=== PATIENT | male | born 1980 | race African-American/Black ===

== ENCOUNTER 2018-01-07 11:25 | Emergency (ER) | payer SELFPAY ==
[2018-01-07 13:52] LABS: RPR Titer ND
[2018-01-07] MEDS ORDERED: CEFTRIAXONE/SWI 1gm 1 GM/10 ML SYR ONE (14:00)
[2018-01-07] MEDS ORDERED: NA CHLORIDE 0.9% 500 ML ONE (14:00)
[2018-01-07] MEDS ORDERED: AZITHROMYCIN 250 MG TAB ONE (14:00)
[2018-01-07 14:01] LABS: Absolute Lymphocytes (CBC) 2.9 K/uL (0.7-4.9); Absolute Neutrophil 5.3 K/uL (1.8-8.0); Basophils % 0.5 % (0-1.3); Eosinophils % 8.8 % (0-4.4); Hematocrit 44.6 % (39.6-49.0); Lymphocytes % 29.1 % (15.3-44.8); MCH 28.7 pg (27.0-35.0); MCV 84.9 fL (80-100); MPV 7.6 fL (7.6-11.3); Monocytes % 9.5 % (3.3-12.3); RBC Red Blood Cell Count 5.25 M/uL (4.33-5.43)
[2018-01-07] MEDS ORDERED: ONDANSETRON 4 MG/2 ML VIAL ONE (14:14)
[2018-01-07] MEDS ORDERED: MUPIROCIN 2% OINT 22GM TUBE TOP ONE (14:15)
[2018-01-07 14:20] LABS: Albumin 3.5 g/dL (3.4-5.0); Bilirubin Total 0.5 mg/dL (0.2-1.0); Potassium 3.5 mmol/L (3.5-5.1); Protein, Total 7.4 g/dL (6.4-8.2)
[2018-01-07 14:42] LABS: Urine Bacteria <20 /HPF (NONE SEEN); Urine Culture Reflex Order REFLEXED; Urine RBC <5 /HPF (NONE SEEN)
[2018-01-07 14:43] LABS: Urine Blood NEGATIVE (NEG); Urine Glucose NEGATIVE (NEG); Urine Protein NEGATIVE (NEG)
--- NOTE | 2018-01-07 14:52 | EDPHYS ---
Physician Documentation [facility] Name: Saturnino Mackey Age: 37 yrs Sex: Male : 1980 Arrival Date: 01/07/2018 Time: 11:30 Bed 6 Private MD: Bryce Terrell ED Physician Joshua Dawn HPI: 01/07 13:28 This 37 yrs old Black Male presents to ER via Ambulatory with complaints of Yeast xena Infection. 13:28 The patient presents with unknown, pt states yeast. Onset: The symptoms/episode xena began/occurred 3 week(s) ago. Modifying factors: The symptoms are alleviated by nothing, remaining still. Associated signs and symptoms: The patient has no apparent associated signs or symptoms. Severity of symptoms: At their worst the symptoms were mild, in the emergency department the symptoms are unchanged. The patient has not experienced similar symptoms in the past. Historical: - Allergies: : No Known Allergies; ch - Home Meds: :44 None [Active]; ch - PMHx: :44 Hypertension; ch - PSHx: :44 None; ch - Immunization history:: Adult Immunizations up to date, Last tetanus immunization: not indicated for visit today. < 5 years ago Flu vaccine is not up to date. - Social history:: Smoking status: Patient uses tobacco products, smokes one pack cigarettes per day. Patient uses alcohol, but reports only rare drinking. 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 - Ebola Screening: : Patient negative for fever greater than or equal to 101.5 degrees Fahrenheit, and additional compatible Ebola Virus Disease symptoms Patient denies exposure to infectious person Patient denies travel to an Ebola-affected area in the 21 days before illness onset No symptoms or risks identified at this time. - Family history:: not pertinent. ROS: 13:28 Constitutional: Negative for fever, chills, and weight loss, Eyes: Negative for injury, xena pain, redness, and discharge, ENT: Negative for injury, pain, and discharge, Neck: Negative for injury, pain, and swelling, Cardiovascular: Negative for chest pain, palpitations, and edema, Respiratory: Negative for shortness of breath, cough, wheezing, and pleuritic chest pain, Abdomen/GI: Negative for abdominal pain, nausea, vomiting, diarrhea, and constipation, Back: Negative for injury and pain, MS/Extremity: Negative for injury and deformity, Skin: Negative for injury, rash, and discoloration, Neuro: Negative for headache, weakness, numbness, tingling, and seizure. 13:28 : Positive for penile pain, of the head of penis. Exam: 13:28 Constitutional: This is a well developed, well nourished patient who is awake, alert, xena and in no acute distress. Head/Face: Normocephalic, atraumatic. Eyes: Pupils equal round and reactive to light, extra-ocular motions intact. Lids and lashes normal. Conjunctiva and sclera are non-icteric and not injected. Cornea within normal limits. Periorbital areas with no swelling, redness, or edema. ENT: Nares patent. No nasal discharge, no septal abnormalities noted. Tympanic membranes are normal and external auditory canals are clear. Oropharynx with no redness, swelling, or masses, exudates, or evidence of obstruction, uvula midline. Mucous membranes moist. Neck: Trachea midline, no thyromegaly or masses palpated, and no cervical lymphadenopathy. Supple, full range of motion without nuchal rigidity, or vertebral point tenderness. No Meningismus. Chest/axilla: Normal chest wall appearance and motion. Nontender with no deformity. No lesions are appreciated. Cardiovascular: Regular rate and rhythm with a normal S1 and S2. No gallops, murmurs, or rubs. Normal PMI, no JVD. No pulse deficits. Respiratory: Lungs have equal breath sounds bilaterally, clear to auscultation and percussion. No rales, rhonchi or wheezes noted. No increased work of breathing, no retractions or nasal flaring. Abdomen/GI: Soft, non-tender, with normal bowel sounds. No distension or tympany. No guarding or rebound. No evidence of tenderness throughout. Back: No spinal tenderness. No costovertebral tenderness. Full range of motion. Skin: Warm, dry with normal turgor. Normal color with no rashes, no lesions, and no evidence of cellulitis. MS/ Extremity: Pulses equal, no cyanosis. Neurovascular intact. Full, normal range of motion. Neuro: Awake and alert, GCS 15, oriented to person, place, time, and situation. Cranial nerves II-XII grossly intact. Motor strength 5/5 in all extremities. Sensory grossly intact. Cerebellar exam normal. Normal gait. Psych: Awake, alert, with orientation to person, place and time. Behavior, mood, and affect are within normal limits. 13:28 : Male external genitalia: erythema, lesion, tenderness, of the head of penis is noted. Vital Signs: 11:44 BP 154 / 105; Pulse 98; Resp 16; Temp 99.6; Pulse Ox 99% on R/A; Weight 104.33 kg; ch Height 5 ft. 11 in. (180.34 cm); Pain 4/10; 14:32 BP 163 / 115; Pulse 85; Resp 16; Pulse Ox 100% on R/A; ag 14:33 BP 155 / 114; Pulse 73; Resp 18; Pulse Ox 99% on R/A; sv 15:00 BP 168 / 120; Pulse 74; Resp 18; Pulse Ox 99% ; sv 11:44 Body Mass Index 32.08 (104.33 kg, 180.34 cm) ch 15:00 Dr Dawn aware of vitals. sv MDM: 12:50 Patient medically screened. [facility] 13:32 Data reviewed: vital signs, nurses notes, lab test result(s). [facility] 01/07 13:05 Order name: Urine Microscopic Only; Complete Time: 14:45 dm5 01/07 13:09 Order name: Urine Dipstick--Ancillary (enter results); Complete Time: 14:45 bd 01/07 13:26 Order name: CBC with Diff; Complete Time: 14:10 [facility] 01/07 13:26 Order name: Comprehensive Metabolic Panel; Complete Time: 14:45 [facility] 01/07 13:26 Order name: Rpr [facility] 01/07 14:43 Order name: Urine Culture EDMS Administered Medications: 14:02 CANCELLED (Duplicate Order): Rocephin - (cefTRIAXone) 1 grams IVPB once over 30 mins; sv (mix in 50 mL NS) 14:05 Drug: NS 0.9% 500 ml Route: IV; Rate: bolus; Site: right antecubital; sv 14:30 Follow up: Response: No adverse reaction; IV Status: Completed infusion; IV Intake: sv 500ml 14:05 Drug: Rocephin 1 grams Route: IV; Rate: calculated rate; Site: right antecubital; sv 14:10 Follow up: Response: No adverse reaction; IV Status: Completed infusion; IV Intake: 10mlsv 14:16 Drug: Zofran 4 mg Route: IVP; Site: right antecubital; sv 14:31 Follow up: Response: No adverse reaction sv 14:17 Drug: Bactroban Ointment 2 % 1 application Route: Topical; Site: affected area; sv 14:30 Follow up: Response: No adverse reaction sv 15:10 Drug: Norvasc 10 mg Route: PO; sv 15:36 Follow up: Response: No adverse reaction sv 15:11 Drug: Zithromax 1 grams Route: PO; sv 15:36 Follow up: Response: No adverse reaction sv 15:11 Drug: Bicillin L-A 2.4 million units {Note: given in 2 seperate IM shots to the left sv and right gluteus.} Route: IM; Site: left gluteus; 15:36 Follow up: Response: No adverse reaction sv Disposition: 01/07/18 14:52 Discharged to Home. Impression: Dermatitis, unspecified - glans, Essential (primary) hypertension. - Condition is Stable. - Discharge Instructions: Contact Dermatitis, Rash, Rash, Dczm-hu-Paff, Contact Dermatitis, Jkez-ax-Aite. - Prescriptions for Bactroban 2 % Topical Ointment - Apply to affected area 1 application by TOPICAL route every 12 hours; 30 gram. Diflucan 150 mg Oral Tablet - take 1 tablet by ORAL route one time for 1 day repeat in one week, as needed; 2 tablet. Doxycycline Hyclate 100 mg Oral Tablet - take 1 tablet by ORAL route every 12 hours; 20 tablet. Norvasc 5 mg Oral Tablet - take 1 tablet by ORAL route once daily; 20 tablet. - Work release form, Medication Reconciliation Form, Thank You Letter, Antibiotic Education, Prescription Opioid Use form. - Follow up: Bryce Terrell; When: 2 - 3 days; Reason: Recheck today's complaints, Continuance of care, Re-evaluation by your physician. - Problem is new. - Symptoms have improved. Signatures: Dispatcher [employer] EDMS Darya Su, RN Tianna Harden ch, RN RN sv Anderson, Corey, MD MD cha Corrections: (The following items were deleted from the chart) 14:02 13:27 Rocephin - (cefTRIAXone) 1 grams IVPB once over 30 mins; (mix in 50 mL NS) sv ordered. [facility] 14:39 13:26 Accucheck ordered. [facility] sv 15:36 14:52 01/07/2018 14:52 Discharged to Home. Impression: Dermatitis, unspecified - glans; sv Essential (primary) hypertension. Condition is Stable. Discharge Instructions: Contact Dermatitis, Rash, Rash, Ntyd-cz-Tomc, Contact Dermatitis, Wlje-yq-Ptey. Prescriptions for Bactroban 2 % Topical Ointment - Apply to affected area 1 application by TOPICAL route every 12 hours; 30 gram, Diflucan 150 mg Oral Tablet - take 1 tablet by ORAL route one time for 1 day repeat in one week, as needed; 2 tablet, Doxycycline Hyclate 100 mg Oral Tablet - take 1 tablet by ORAL route every 12 hours; 20 tablet. and Forms are Medication Reconciliation Form, Thank You Letter, Antibiotic Education, Prescription Opioid Use. Follow up: Bryce Terrell; When: 2 - 3 days; Reason: Recheck today's complaints, Continuance of care, Re-evaluation by your physician. Problem is new. Symptoms have improved. xena
--- NOTE | 2018-01-07 14:52 | ER ---
Nurse's Notes [facility] Name: Saturnino Mackey Age: 37 yrs Sex: Male : 1980 Arrival Date: 01/07/2018 Time: 11:30 Bed 6 Private MD: Bryce Terrell Diagnosis: Dermatitis, unspecified-glans;Essential (primary) hypertension Presentation: 01/07 11:43 Presenting complaint: Patient states: I WAS TAKING BACTRIM BECAUSE I HAD A SPIDER BITE, ch THEN I HAVE THRUSH IN MY MOUTH FOR THE PAST 3 WEEKS. [facility] [place] [facility] DIDN'T GIVE ME ANYTING FOR IT. NOW ITS ON MY PENIS, AND ITS NOT GETTING ANY BETTER. Transition of care: patient was not received from another setting of care. Onset of symptoms was December 19, 2017. Risk Assessment: Do you want to hurt yourself or someone else? Patient reports no desire to harm self or others. Initial Sepsis Screen: Does the patient meet any 2 criteria? No. Patient's initial sepsis screen is negative. Does the patient have a suspected source of infection? No. Patient's initial sepsis screen is negative. Care prior to arrival: None. 11:43 Method Of Arrival: Ambulatory 11:43 Acuity: AMARIS 4 ch Triage Assessment: 11:44 General: Appears in no apparent distress. uncomfortable, Behavior is calm, cooperative, ch appropriate for age. Pain: Complains of pain in head of penis and shaft of penis Pain currently is 4 out of 10 on a pain scale. Historical: - Allergies: 11:44 No Known Allergies; - Home Meds: 11:44 None [Active]; ch - PMHx: 11:44 Hypertension; ch - PSHx: 11:44 None; ch - Immunization history:: Adult Immunizations up to date, Last tetanus immunization: not indicated for visit today. < 5 years ago Flu vaccine is not up to date. - Social history:: Smoking status: Patient uses tobacco products, smokes one pack cigarettes per day. Patient uses alcohol, but reports only rare drinking. 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 - Ebola Screening: : Patient negative for fever greater than or equal to 101.5 degrees Fahrenheit, and additional compatible Ebola Virus Disease symptoms Patient denies exposure to infectious person Patient denies travel to an Ebola-affected area in the 21 days before illness onset No symptoms or risks identified at this time. - Family history:: not pertinent. Screenin:09 Abuse screen: Denies threats or abuse. Denies injuries from another. Nutritional sv screening: No deficits noted. Tuberculosis screening: No symptoms or risk factors identified. Fall Risk None identified. Assessment: 13:10 General: Appears in no apparent distress. comfortable, well developed, Behavior is sv calm, cooperative, appropriate for age. Pain: Denies pain. Neuro: Level of Consciousness is awake, alert, obeys commands, Oriented to person, place, time, situation, Moves all extremities. Full function Gait is steady. Respiratory: Respiratory effort is even, unlabored, Respiratory pattern is regular, symmetrical. Derm: Skin is normal. 14:00 : Lesions noted on penis. EENT: Oral mucosa is moist. Lesions noted. on tongue. sv 14:39 Reassessment: per pts request called made to parole office at ph#[phone], message left tw2 that pt was in our ER since 1145 this morning. 15:10 Reassessment: Patient appears in no apparent distress at this time. No changes from sv previously documented assessment. Patient and/or family updated on plan of care and expected duration. Pain level reassessed. Patient is alert, oriented x 3, equal unlabored respirations, skin warm/dry/pink. 15:34 Reassessment: Patient appears in no apparent distress at this time. No changes from sv previously documented assessment. Patient and/or family updated on plan of care and expected duration. Pain level reassessed. Patient is alert, oriented x 3, equal unlabored respirations, skin warm/dry/pink. Vital Signs: 11:44 BP 154 / 105; Pulse 98; Resp 16; Temp 99.6; Pulse Ox 99% on R/A; Weight 104.33 kg; ch Height 5 ft. 11 in. (180.34 cm); Pain 4/10; 14:32 BP 163 / 115; Pulse 85; Resp 16; Pulse Ox 100% on R/A; ag 14:33 BP 155 / 114; Pulse 73; Resp 18; Pulse Ox 99% on R/A; sv 15:00 BP 168 / 120; Pulse 74; Resp 18; Pulse Ox 99% ; sv 11:44 Body Mass Index 32.08 (104.33 kg, 180.34 cm) ch 15:00 Dr Dawn aware of vitals. sv ED Course: 11:30 Patient arrived in ED. sb2 11:31 Bryce Terrell MD is Private Physician. sb2 11:44 Triage completed. ch 11:44 Arm band placed on left wrist. Patient placed in waiting room. ch 12:49 Joshua Dawn MD is Attending Physician. xena 12:55 Tianna Wagner RN is Primary Nurse. sv 13:09 Patient has correct armband on for positive identification. Placed in gown. Bed in low sv position. Door closed. Head of bed elevated. 13:20 Assist provider with pelvic exam:. sv 13:46 Rpr Sent. ag 13:46 Comprehensive Metabolic Panel Sent. ag 13:46 CBC with Diff Sent. ag 13:47 Inserted saline lock: 20 gauge in right antecubital area, using aseptic technique. ag Blood collected. 14:49 Bryce Terrell MD is Referral Physician. xena 15:35 IV discontinued, intact, bleeding controlled, No redness/swelling at site. Pressure sv dressing applied. Administered Medications: 14:02 CANCELLED (Duplicate Order): Rocephin - (cefTRIAXone) 1 grams IVPB once over 30 mins; sv (mix in 50 mL NS) 14:05 Drug: NS 0.9% 500 ml Route: IV; Rate: bolus; Site: right antecubital; sv 14:30 Follow up: Response: No adverse reaction; IV Status: Completed infusion; IV Intake: sv 500ml 14:05 Drug: Rocephin 1 grams Route: IV; Rate: calculated rate; Site: right antecubital; sv 14:10 Follow up: Response: No adverse reaction; IV Status: Completed infusion; IV Intake: 10mlsv 14:16 Drug: Zofran 4 mg Route: IVP; Site: right antecubital; sv 14:31 Follow up: Response: No adverse reaction sv 14:17 Drug: Bactroban Ointment 2 % 1 application Route: Topical; Site: affected area; sv 14:30 Follow up: Response: No adverse reaction sv 15:10 Drug: Norvasc 10 mg Route: PO; sv 15:36 Follow up: Response: No adverse reaction sv 15:11 Drug: Zithromax 1 grams Route: PO; sv 15:36 Follow up: Response: No adverse reaction sv 15:11 Drug: Bicillin L-A 2.4 million units {Note: given in 2 seperate IM shots to the left sv and right gluteus.} Route: IM; Site: left gluteus; 15:36 Follow up: Response: No adverse reaction sv Intake: 14:10 IV: 10ml; Total: 10ml. sv 14:30 IV: 500ml; Total: 510ml. sv Outcome: 14:52 Discharge ordered by . xena 15:34 Discharged to home ambulatory. sv 15:34 Condition: stable 15:34 Discharge instructions given to patient, Instructed on discharge instructions, follow up and referral plans. medication usage, safe sex practices, Demonstrated understanding of instructions, follow-up care, medications, Prescriptions given X 4. 15:36 Patient left the ED. sv Signatures: Darya Su, RN RN Tianna Blankenship RN RN sv Anderson, Corey, MD MD cha Gallardo, Katja Mayberry RN RN 2 Aye Salcedo 2 Corrections: (The following items were deleted from the chart) 15:35 15:35 No provider procedures requiring assistance completed. sv sv
[2018-01-07] MEDS ORDERED: AMLODIPINE 5 MG TAB ONE (15:02)
[2018-01-07] MEDS ORDERED: PEN G BENZ LA 2.4 MU/4 ML SYRINGE IM ONE (15:03)
[2018-01-07 21:48] LABS: RPR (Rapid Plasma Reagin) NON-REACT (NON-REACT)
== END 2018-01-07 15:36 | disposition home or self-care (01) ==
LOC: ER 11:25
DX: L30.9 Dermatitis, unspecified (principal); I10 Essential (primary) hypertension; F17.210 Nicotine dependence, cigarettes, uncomplicated
CPT/HCPCS: 36415; 80053; 81003; 81015; 85025; 86592; 87086; 87088; 96372; 96374; 96375; 99284; J0561; J0696; J2405

== ENCOUNTER 2022-09-15 13:10 | Inpatient (IN) | payer SELFPAY ==
--- OUTSIDE RECORDS SUMMARY | 2022-09-15 13:14 | XMS REPORT | Continuity of Care Document ---
:1980 Author Organization [facility] t Address [address] [place] [address] Care Team Providers Name Role Phone Pcp, Patient Does Not Have A Primary Care Physician +[id number] Neno SORENSEN Attending Clinician Unavailable Neno Parra Attending Clinician [facility] JUSTIN Attending Clinician Unavailable [facility] Justin MD Attending Clinician Payers Payer Name Policy Type Policy Number Effective Date Expiration Date S ource [facility] [id number] 2022 00:00:00 [facility] [id number] 2018 USP 00:00:00 Problems Condition Condition Condition Status Onset Resolution Last Treating Co mments Source Name Details Category Date Date Treatment Clinician Date No known No known Disease Unive rs active active ity of problems problems [facility] Allergies, Adverse Reactions, Alerts Allergy Allergy Status Severity Reaction(s) Onset Inactive Treating Comm ents Source Name Type Date Date Clinician IODINE DRUG Active Swelling 2021-05 Univers INGREDI 0-11 ity of 00:00: [place] 00 Medical Branch Iodine Propensi Active Swelling 2021-05 Univer s ty to 0-11 ity of adverse 00:00: [place] reaction 00 Medical s Branch SULFA Drug Active Swelling 2017-05 Univers (SULFONA Class 1-09 ity of MIDE 00:00: [place] ANTIBIOT 00 Medical ICS) Branch Sulfa Propensi Active Swelling 2017-05 Univer s (Sulfona ty to 05-29 ity of mide adverse 00:00: [place] Antibiot reaction 00 Medica l ics) s Branch Social History Social Habit Start Date Stop Date Quantity Comments Source Exposure to 2022-09-03 2022-09-13 Not sure [facility] SARS-CoV-2 (event) 00:00:00 16:53:00 Medica l Branch Sex Assigned At [address] [facility] y [facility] 00:00:00 00:00:00 Medical Branch Smoking Status Start Date Stop Date Source Tobacco [facility] Branch Medications Ordered Filled Start Stop Current Ordering Indication Dosage Frequency Signature Comments Components Source Medication Medication Date Date Medication? Clinician (SIG) Name Name oxymetazoli No 2{spray 2 [place], [facility] 09-13 } Nasal, ity of (OXYMETAZOL 21:00[place] 21[place]01 [place] HCL[place] 00 :00 dose, On Medical 0.05 % Wed Branch nasal spray 09/13/22 at 2 [place] 1600, YEHUDA nystatin 2017-05 Yes [id number] Take 5 mL U nivers 100,000 -09 by mouth 4 ity of unit/mL 00:00: (four) [place] suspension 00 times Medical daily. Branch amLODIPine 2017-05 Yes 5mg Take 2 Unive rs 2.5 mg -09 tablets by ity of tablet 00:00: mouth at [place] 00 bedtime. Medical Branch nystatin 2017-05 Yes [id number] Take 5 mL U nivers 100,000 -09 by mouth 4 ity of unit/mL 00:00: (four) [place] suspension 00 times Medical daily. Branch amLODIPine 2017-05 Yes 5mg Take 2 Unive rs 2.5 mg 1-09 tablets by ity of tablet 00:00: mouth at [place] 00 bedtime. Medical Branch Vital Signs Vital Name Observation Time Observation Value Comments Source Systolic blood 2022-09-13 20:30:00 145 mm[Hg] Univer sity of pressure [facility] Diastolic blood 2022-09-13 20:30:00 94 mm[Hg] Unive rsity of pressure [facility] Heart rate 2022-09-13 20:30:00 79 /min [facility] [place] [facility] Body temperature 2022-09-13 20:30:00 36.94 Cookie [facility] [place] [facility] ersity of [facility] Respiratory rate 2022-09-13 20:30:00 18 /min Univ ersity of [place] [facility] Body height 2022-09-13 20:30:00 180.3 cm [facility] [place] [facility] [place] Body weight 2022-09-13 20:30:00 117.935 kg Universi ty of [facility] BMI 2022-09-13 20:30:00 36.26 kg/m2 Universi ty of [facility] Oxygen saturation in 2022-09-13 20:30:00 97 /min University of Arterial blood by [facility] Pulse oximetry Branch Systolic blood 2022-02-28 23:37:00 172 mm[Hg] Univer sity of pressure [facility] Diastolic blood 2022-02-28 23:37:00 125 mm[Hg] Unive rsity of [facility] Heart rate 2022-02-28 23:37:00 88 /min [facility] [place] [facility] [place] Respiratory rate 2022-02-28 23:37:00 18 /min [facility] [place] [facility] ersity of [facility] Oxygen saturation in 2022-02-28 23:37:00 100 /min University of Arterial blood by [facility] Pulse oximetry Branch Body temperature 2022-02-28 22:15:00 36.5 Cookie [facility] [place] [facility] ersity of [place] [facility] [place] Body height 2022-02-28 22:15:00 180.3 cm [facility] [place] [facility] [place] Body weight 2022-02-28 22:15:00 107.956 kg [facility] [place] [facility] [place] BMI 2022-02-28 22:15:00 33.19 kg/m2 Universi ty [facility] [place] [facility] Procedures This patient has no known procedures. Encounters Start End Encounter Admission Attending Care Care Encounter Source Date/Time Date/Time Type Type Clinicians Facility Department ID 2022-09-13 2022-09-13 Emergency X Neno SORENSEN [facility] ERT [id number] Univers 15:32:00 17:06:00 ity of [facility] 2022-09-13 2022-09-13 Emergency Neno Sorensen [facility] [id number] Univers 15:32:00 17:06:00 Kari QUILES [id number] i ty of [facility] [id number] [facility] [id number] [facility] fariba 084 Branch 2022-02-28 2022-02-28 Emergency X NHAN, [facility] ERT [id number] Univers 17:17:00 18:38:00 [facility] giles of [facility] 2022-02-28 2022-02-28 Emergency Nhan, [facility] [id number] Univers 17:17:00 18:38:00 [facility] QUILES [id number] ity amarilis [facility] [id number] [facility] [id number] [facility] far[place] 084 Branch Results This patient has no known results.
[2022-09-15 13:52] LABS: Absolute Lymphocytes (CBC) 1.4 K/uL (0.7-4.9); Lymphocytes % 19.9 % (15.3-44.8); MCV 86.7 fL (80-100); MPV 7.2 fL (7.6-11.3); RBC Red Blood Cell Count 2.65 M/uL (4.33-5.43)
[2022-09-15 14:01] LABS: Protime INR 1.36
--- NOTE | 2022-09-15 14:11 | RAD REPORT ---
EXAM DESCRIPTION: Jonh Single View09/15/2022 1:51 pm CLINICAL HISTORY: diaphoresis COMPARISON: none FINDINGS: The lungs appear clear of acute infiltrate. The heart is upper limits normal size to bord ritika enlarged IMPRESSION: No acute abnormalities displayed
--- NOTE | 2022-09-15 14:33 | EDPHYS ---
Physician Documentation [facility] Name: Saturnino Mackey Age: 42 yrs Sex: Male : 1980 Arrival Date: 09/15/2022 Time: 13:10 Bed 19 Private MD: ED Physician Maulik Cates HPI: 09/15 13:18 This 42 yrs old Black Male presents to ER via Unassigned with complaints of left nose snw bleed. 13:18 The patient presents with a nose bleed, that is apparently posterior, from the left snw nare, that is moderate amount pt was at ENT for evaluation, bleed too posterior to cauterize in the office. Pt became lethargic, diaphoretic and EMS was called. Pt arrives to ED arousable but sedate. Diaphoresis has resolved.. Onset: The symptoms/episode began/occurred acutely. Associated signs and symptoms: Loss of consciousness: the patient experienced no loss of consciousness, Pertinent positives: lightheadedness, diaphoresis. Severity of symptoms: At their worst the symptoms were moderate. The patient has not experienced similar symptoms in the past. no PCP. Historical: - Allergies: 13:36 No Known Allergies; hb - PMHx: 13:36 Hypertension; hb - Immunization history:: Adult Immunizations. - Social history:: Smoking status: . ROS: 13:37 Eyes: Negative for injury, pain, redness, and discharge. snw 13:37 Neck: Negative for injury, pain, and swelling, Cardiovascular: Negative for chest pain, palpitations, and edema, Respiratory: Negative for shortness of breath, cough, wheezing, and pleuritic chest pain, Abdomen/GI: Negative for abdominal pain, nausea, vomiting, diarrhea, and constipation, Back: Negative for injury and pain, : Negative for injury, bleeding, discharge, and swelling, MS/Extremity: Negative for injury and deformity, Skin: Negative for injury, rash, and discoloration, Neuro: Negative for headache, weakness, numbness, tingling, and seizure, Psych: Negative for depression, anxiety, suicide ideation, homicidal ideation, and hallucinations. 13:37 Constitutional: Positive for body aches, malaise. 13:37 ENT: Positive for nose bleed. Exam: 13:33 Head/Face: Normocephalic, atraumatic. Eyes: Pupils equal round and reactive to light, snw extra-ocular motions intact. Lids and lashes normal. Conjunctiva and sclera are non-icteric and not injected. Cornea within normal limits. Periorbital areas with no swelling, redness, or edema. 13:33 Neck: Trachea midline, no thyromegaly or masses palpated, and no cervical lymphadenopathy. Supple, full range of motion without nuchal rigidity, or vertebral point tenderness. No Meningismus. Chest/axilla: Normal chest wall appearance and motion. Nontender with no deformity. No lesions are appreciated. Cardiovascular: Regular rate and rhythm with a normal S1 and S2. No gallops, murmurs, or rubs. Normal PMI, no JVD. No pulse deficits. Respiratory: Lungs have equal breath sounds bilaterally, clear to auscultation and percussion. No rales, rhonchi or wheezes noted. No increased work of breathing, no retractions or nasal flaring. Abdomen/GI: Soft, non-tender, with normal bowel sounds. No distension or tympany. No guarding or rebound. No evidence of tenderness throughout. Back: No spinal tenderness. No costovertebral tenderness. Full range of motion. Skin: Warm, dry with normal turgor. Normal color with no rashes, no lesions, and no evidence of cellulitis. MS/ Extremity: Pulses equal, no cyanosis. Neurovascular intact. Full, normal range of motion. Neuro: Awake and alert, GCS 15, oriented to person, place, time, and situation. Cranial nerves II-XII grossly intact. Motor strength 5/5 in all extremities. Sensory grossly intact. Cerebellar exam normal. Normal gait. Psych: Awake, alert, with orientation to person, place and time. Behavior, mood, and affect are within normal limits. 13:33 Constitutional: The patient appears awake, listless. 13:33 ENT: Nose: Nasal mucosa: Dried blood. packing to left nare per Dr. Gray. Vital Signs: 13:35 BP 138 / 88; Pulse 73; Resp 16; Temp 98.1; Pulse Ox 100% on R/A; Pain 0/10; hb 13:35 Weight 117.93 kg; Height 5 ft. 11 in. ; eh3 15:19 BP 152 / 100; Pulse 75; Resp 14; Pulse Ox 99% ; jl7 16:00 BP 137 / 81; Pulse 75; Resp 14; Pulse Ox 100% on R/A; hb 17:19 BP 130 / 87; Pulse 74; Resp 15; Pulse Ox 99% on R/A; hb 18:19 BP 151 / 100; Pulse 76; Resp 16; Temp 97.4; Pulse Ox 100% ; hb 19:31 BP 157 / 97; Pulse 72; Resp 14 S; Pulse Ox 99% ; ha1 19:44 Temp 98.4(O); ha1 20:10 BP 162 / 91; Pulse 88; Resp 18 S; Pulse Ox 97% on R/A; ha1 13:35 Body Mass Index 36.26 (117.93 kg, 180.34 cm) eh3 13:35 Pain Scale: Adult hb MDM: 13:15 Patient medically screened. kb 13:49 Differential diagnosis: spontaneous epistaxis, vasovagal syncope, ACS. Data reviewed: snw vital signs, nurses notes, lab test result(s), EKG. Management of patient was discussed with the following: Hospitalist: Dr. Levin. Counseling: I had a detailed discussion with the patient and/or guardian regarding: the historical points, exam findings, and any diagnostic results supporting the discharge/admit diagnosis, the presence of at least one elevated blood pressure reading (>120/80) during this emergency department visit, lab results, radiology results, the need for further work-up and treatment in the hospital. Awaiting: labs results. 15:02 ED course: will complete one unit of blood and recheck electrolytes prior to admit. snw 17:06 ED course: FSBS up to 119mg/dL. [facility] 09/15 13:17 Order name: TS 09/15 13:17 Order name: Basic Metabolic Panel; Complete Time: 14:57 [facility] 09/15 13:17 Order name: CBC with Diff; Complete Time: 14:20 [facility] 09/15 13:17 Order name: LFT's; Complete Time: 14:57 [facility] 09/15 13:17 Order name: Magnesium; Complete Time: 14:57 [facility] 09/15 13:17 Order name: NT PRO-BNP; Complete Time: 14:57 [facility] 09/15 13:17 Order name: PT-INR; Complete Time: 14:20 [facility] 09/15 13:17 Order name: Troponin HS; Complete Time: 14:57 snw 09/15 13:17 Order name: CPK; Complete Time: 14:57 snw 09/15 14:22 Order name: Bb Add On 09/15 14:42 Order name: Packed RBC Leukored EDMS 09/15 15:28 Order name: ABO/RH no charge; Complete Time: 15:28 EDMS 09/15 15:39 Order name: Basic Metabolic Panel EDMS 09/15 15:39 Order name: Basic Metabolic Panel EDMS 09/15 15:39 Order name: Basic Metabolic Panel EDMS 09/15 15:39 Order name: Basic Metabolic Panel EDMS 09/15 15:39 Order name: CBC with Automated Diff EDMS 09/15 15:39 Order name: CBC with Automated Diff; Complete Time: 17:23 EDMS 09/15 15:39 Order name: CBC with Automated Diff EDMS 09/15 15:46 Order name: Urine Potassium Random snw 09/15 17:14 Order name: Glucose, Ancillary Testing; Complete Time: 17:15 EDMS 09/15 17:26 Order name: UR POTASSIUM; Complete Time: 17:31 EDMS 09/15 17:32 Order name: CBC with Diff w 09/15 17:32 Order name: CMP w 09/15 17:32 Order name: Magnesium snw 09/15 17:51 Order name: CBC with Automated Diff; Complete Time: 17:52 EDMS 09/15 18:16 Order name: Comprehensive Metabolic Panel; Complete Time: 18:18 EDMS 09/15 18:16 Order name: Magnesium; Complete Time: 18:18 EDMS 09/15 13:17 Order name: XRAY Chest (1 view); Complete Time: 14:20 w 09/15 13:17 Order name: EKG; Complete Time: 13:18 w 09/15 13:17 Order name: Cardiac monitoring; Complete Time: 13:37 w 09/15 13:17 Order name: EKG - Nurse/Tech; Complete Time: 13:30 w 09/15 13:17 Order name: IV Saline Lock; Complete Time: 13:30 w 09/15 13:17 Order name: Labs collected and sent; Complete Time: 13:45 09/15 13:17 Order name: O2 Per Protocol; Complete Time: 13:30 09/15 13:17 Order name: O2 Sat Monitoring; Complete Time: 13:30 snw 09/15 14:29 Order name: Consent for Blood Transfusion; Complete Time: 14:40 snw 09/15 16:40 Order name: FSBS; Complete Time: 17:15 snw EC:25 Rate is 72 beats/min. Rhythm is regular. QRS interval is prolonged. ST Segment is snw depressed in leads I, II, V4, V5, V6. Clinical impression: NSR w/ Non-specific ST/T Changes. Administered Medications: 19:44 Discontinued: Potassium Chloride IV 20 mEq IV at calculated rate once; administer over ph 1-2 hours 15:15 Drug: Magnesium Sulfate IVPB 2 grams Route: IVPB; Infused Over: 2 hrs; Site: left hb antecubital; 17:18 Follow up: Response: No adverse reaction; IV Status: Completed infusion; IV Intake: hb 100ml 15:21 Drug: Potassium Chloride IV 20 mEq Route: IV; Rate: calculated rate; Site: right hand; hb 17:08 Follow up: Response: No adverse reaction; IV Status: Completed infusion; IV Intake: hb 100ml 15:36 Drug: Glucose PO Gel 15 grams Route: PO; hb 16:20 Follow up: Response: No adverse reaction hb 17:18 Drug: Potassium Chloride IV 20 mEq Route: IV; Rate: calculated rate; Site: left hb antecubital; 19:42 Drug: Norvasc PO 5 mg Route: PO; ha1 20:35 Follow up: Response: No adverse reaction ha1 Disposition: 16:45 Co-signature as Attending Physician, Maulik HINKLE was immediately available on-site ms3 in the Emergency Department for consultation in the care of the patient. Disposition Summary: 09/15/22 14:32 Hospitalization Ordered Hospitalization Status: Observation snw Provider: Saran Leivn snw Condition: Stable snw Problem: new snw Symptoms: are unchanged snw Bed/Room Type: Standard snw Location: Telemetry/MedSurg (observation)(09/15/22 19:06) cg Room Assignment: 214(09/15/22 19:11) cg Diagnosis - Epistaxis snw - Acute posthemorrhagic anemia snw - Other disorders of electrolyte and fluid balance, not elsewhere classified snw Forms: - Medication Reconciliation Form snw - SBAR form snw Signatures: Dispatcher [employer] Nessa Armenta, DOOR TECHNICIAN-C DOOR TECHNICIAN-Ckb Karla Juarez, DOOR TECHNICIAN-C DOOR TECHNICIAN-Ashleyw Sunita Petersen, LATA GUIDO cg Fernanda Estrada, RN RN Reggie Terrell RN RN jl7 Maulik Cates, DO ms3 Shavon Newton RN RN ha1 Corrections: (The following items were deleted from the chart) 16:22 14:32 Telemetry/MedSurg (observation) snw jl7 16:22 14:32 snw jl7 18:38 16:22 Intensive Care Unit jl7 snw 18:38 16:22 7- jl7 snw 18:47 18:38 Telemetry/MedSurg (observation) snw cg 18:47 18:38 snw cg 19:06 18:47 Intensive Care Unit cg cg 19:06 18:47 7- cg cg 19:11 19:06 cg cg
--- NOTE | 2022-09-15 14:33 | ER ---
Nurse's Notes [facility] Name: Saturnino Mackey Age: 42 yrs Sex: Male : 1980 Arrival Date: 09/15/2022 Time: 13:10 Bed 19 Private MD: Diagnosis: Epistaxis;Acute posthemorrhagic anemia;Other disorders of electrolyte and fluid balance, not elsewhere classified Presentation: 09/15 13:35 Chief complaint: EMS states: Sent by Dr. Gray for nosebleed. Coronavirus screen: At hb this time, the client does not indicate any symptoms associated with coronavirus-19. Ebola Screen: No symptoms or risks identified at this time. Initial Sepsis Screen: Does the patient meet any 2 criteria? No. Patient's initial sepsis screen is negative. Does the patient have a suspected source of infection? No. Patient's initial sepsis screen is negative. Risk Assessment: Do you want to hurt yourself or someone else? Patient reports no desire to harm self or others. Onset of symptoms was September 15, 2022. 13:35 Method Of Arrival: EMS: [facility] hb 13:35 Acuity: AMARIS 3 hb 16:42 Acuity: AMARIS 2 jl7 Triage Assessment: 13:35 General: Appears in no apparent distress. uncomfortable, Behavior is cooperative. eh3 Historical: - Allergies: 13:36 No Known Allergies; hb - PMHx: 13:36 Hypertension; hb - Immunization history:: Adult Immunizations. - Social history:: Smoking status: . Screenin:37 [facility] ED Fall Risk Assessment (Adult) Score/Fall Risk Level 0 - 2 = Low Risk hb Oriented to surroundings, Maintained a safe environment, Educated pt \T\ family on fall prevention, incl call for assistance when getting out of bed. Abuse screen: Denies threats or abuse. Denies injuries from another. Nutritional screening: No deficits noted. Tuberculosis screening: No symptoms or risk factors identified. Assessment: 13:41 General: Appears in no apparent distress. Behavior is calm, cooperative. Pain: Denies hb pain. Neuro: Level of Consciousness is awake, alert, obeys commands, Oriented to person, place, time, situation. Cardiovascular: Patient's skin is warm and dry. Respiratory: Respiratory effort is even, unlabored, Respiratory pattern is regular, symmetrical. GI: No signs and/or symptoms were reported involving the gastrointestinal system. : No signs and/or symptoms were reported regarding the genitourinary system. EENT: packing remains in left nare . Derm: Skin is pink, warm \T\ dry. Musculoskeletal: No signs and/or symptoms reported regarding the musculoskeletal system. 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 [facility] 15:10 Reassessment: Karla LABORER PETROLEUM REFINERY at bedside discussing results and POC. [facility] 16:00 Reassessment: First unit PRBCs started, see transfusion flowsheet. hb 17:00 Reassessment: Patient appears in no apparent distress at this time. No changes from hb previously documented assessment. Patient and/or family updated on plan of care and expected duration. Pain level reassessed. 17:58 Reassessment: Patient appears in no apparent distress at this time. No changes from hb previously documented assessment. Patient and/or family updated on plan of care and expected duration. Pain level reassessed. 19:30 General: Appears comfortable, Behavior is calm, cooperative. Pain: Denies pain. Neuro: ha1 Level of Consciousness is awake, alert, obeys commands, Oriented to person, place, time, situation. Cardiovascular: Patient's skin is warm and dry. Respiratory: Airway is patent Respiratory effort is even, unlabored, Respiratory pattern is regular, symmetrical. GI: No signs and/or symptoms were reported involving the gastrointestinal system. : No signs and/or symptoms were reported regarding the genitourinary system. Derm: Skin is healthy with good turgor, Skin is moist, Skin is normal. Musculoskeletal: Circulation, motion, and sensation intact. Range of motion: intact in all extremities. 20:10 Reassessment: Patient and/or family updated on plan of care and expected duration. Pain ha1 level reassessed. Patient is alert, oriented x 3, equal unlabored respirations, skin warm/dry/pink. being admitted. Vital Signs: 13:35 BP 138 / 88; Pulse 73; Resp 16; Temp 98.1; Pulse Ox 100% on R/A; Pain 0/10; hb 13:35 Weight 117.93 kg; Height 5 ft. 11 in. ; eh3 15:19 BP 152 / 100; Pulse 75; Resp 14; Pulse Ox 99% ; jl7 16:00 BP 137 / 81; Pulse 75; Resp 14; Pulse Ox 100% on R/A; hb 17:19 BP 130 / 87; Pulse 74; Resp 15; Pulse Ox 99% on R/A; hb 18:19 BP 151 / 100; Pulse 76; Resp 16; Temp 97.4; Pulse Ox 100% ; hb 19:31 BP 157 / 97; Pulse 72; Resp 14 S; Pulse Ox 99% ; ha1 19:44 Temp 98.4(O); ha1 20:10 BP 162 / 91; Pulse 88; Resp 18 S; Pulse Ox 97% on R/A; ha1 13:35 Body Mass Index 36.26 (117.93 kg, 180.34 cm) eh3 13:35 Pain Scale: Adult hb ED Course: 13:12 Patient arrived in ED. eb 13:15 Karla Juarez FNP-C is PHCP. kb 13:15 Maulik Cates DO is Attending Physician. kb 13:31 Patient has correct armband on for positive identification. Placed in gown. Bed in low mm9 position. Call light in reach. Side rails up X2. Adult w/ patient. Warm blanket given. Client placed on continuous cardiac and pulse oximetry monitoring. NIBP monitoring applied. cafeteria monitor on. Pulse ox on. NIBP on. 13:31 Initial lab(s) drawn, by me, sent to lab. EKG done, by ED staff, reviewed by Karla CURRY. Maintain EMS IV. Dressing intact. Site clean \T\ dry. 13:36 Triage completed. hb 13:37 Arm band placed on. hb 13:41 Fernanda Estrada, RN is Primary Nurse. hb 13:45 Basic Metabolic Panel Sent. mm9 13:46 CPK Sent. mm9 13:46 CBC with Diff Sent. mm9 13:46 LFT's Sent. mm9 13:46 Magnesium Sent. mm9 13:46 NT PRO-BNP Sent. mm9 13:46 PT-INR Sent. mm9 13:46 Troponin HS Sent. mm9 13:46 XRAY Chest (1 view) Sent. mm9 13:54 XRAY Chest (1 view) In Process Unspecified. EDMS 14:31 Saran Levin MD is Hospitalizing Provider. snw 15:16 Bb Add On Sent. hb 15:19 Inserted saline lock: 20 gauge in left forearm, using aseptic technique. jl7 17:15 Urine Potassium Random Sent. mm9 17:30 Inserted saline lock: 22 gauge in left hand, using aseptic technique. hb 17:45 CBC with Diff Sent. mm9 17:45 CMP Sent. mm9 17:45 Magnesium Sent. mm9 19:25 Primary Nurse role handed off by Fernanda Estrada RN 19:31 Shavon Newton, LATA is Primary Nurse. ha1 20:10 No provider procedures requiring assistance completed. ha1 20:10 Patient admitted, IV remains in place. ha1 Administered Medications: 19:44 Discontinued: Potassium Chloride IV 20 mEq IV at calculated rate once; administer over ph 1-2 hours 15:15 Drug: Magnesium Sulfate IVPB 2 grams Route: IVPB; Infused Over: 2 hrs; Site: left hb antecubital; 17:18 Follow up: Response: No adverse reaction; IV Status: Completed infusion; IV Intake: hb 100ml 15:21 Drug: Potassium Chloride IV 20 mEq Route: IV; Rate: calculated rate; Site: right hand; hb 17:08 Follow up: Response: No adverse reaction; IV Status: Completed infusion; IV Intake: hb 100ml 15:36 Drug: Glucose PO Gel 15 grams Route: PO; hb 16:20 Follow up: Response: No adverse reaction hb 17:18 Drug: Potassium Chloride IV 20 mEq Route: IV; Rate: calculated rate; Site: left hb antecubital; 19:42 Drug: Norvasc PO 5 mg Route: PO; ha1 20:35 Follow up: Response: No adverse reaction ha1 Medication: 13:37 VIS not applicable for this client. hb Intake: 17:08 IV: 100ml; Total: 100ml. hb 17:18 IV: 100ml; Total: 200ml. hb Outcome: 14:32 Decision to Hospitalize by Provider. snw 20:10 Admitted to Med/surg accompanied by tech, via stretcher, room 214, with chart, Report ha1 called to LATA Galarza 20:10 Condition: stable 20:10 Discharge instructions given to patient, Instructed on the need for admit, Demonstrated understanding of instructions. 20:10 Patient left the ED. ha1 Signatures: Dispatcher [facility]NE Nessa Quintero FNP-C FNP-Karla Ross FNP-C FNP-Fernanda Pena RN RN Reggie Terrell RN RN jl7 Stacie Melton Wendy wm Hall, Erin, RN RN 3 Shavon Newton RN RN ha1 Katty Segovia mm9 Corrections: (The following items were deleted from the chart) 20:34 20:33 Patient left the ED. ha1 ha1 20:36 20:00 BP 132 / 91; Pulse 88bpm; Resp 18bpm; Spontaneous; Pulse Ox 97% RA; ha1 ha1
[2022-09-15 14:46] LABS: ALT/SGPT 15 U/L (16-61); AST/SGOT 8 U/L (15-37); Albumin 1.9 g/dL (3.4-5.0); Alkaline Phosphatase 26 U/L (45-117); BUN Blood Urea Nitrogen 14 mg/dL (7-18); Bicarbonate 18 mEq/L (21-32); Bilirubin Total 0.1 mg/dL (0.2-1.0); Creatine Phosphokinase 170 U/L (39-308); Glomerular Filtration Rate 128 ml/min (=/>90); Glucose Level 57 mg/dL (74-106); Magnesium 1.1 mg/dL (1.6-2.4); NT PRO-BNP 8 pg/mL (<125); Protein, Total 3.5 g/dL (6.4-8.2); Sodium Level 149 mEq/L (136-145)
[2022-09-15 14:52] LABS: Bilirubin Direct < 0.1 mg/dL (0-0.2)
[2022-09-15 14:54] LABS: Potassium 2.2 mEq/L (3.5-5.1)
[2022-09-15] MEDS ORDERED: Magnesium Sulfate 2gm IVPB 2 G/50 ML BAG IV ONE (15:15)
[2022-09-15] MEDS ORDERED: KCL 20 MEQ/100 mL IVPB 200 ML IV ONE (15:15)
[2022-09-15] MEDS ORDERED: NA CHLORIDE 0.9% 250 ML ONE (15:15)
[2022-09-15] MEDS ORDERED: NA CHLORIDE 0.9% 1,000 ML ONE (15:24)
[2022-09-15] MEDS ORDERED: ONDANSETRON 4 MG/2 ML VIAL IV PRN (15:37)
[2022-09-15] MEDS ORDERED: ACETAMINOPHEN 500 MG TAB PO PRN (15:37)
[2022-09-15] MEDS ORDERED: HYDRALAZINE HCL 20 MG/ML VIAL IV PRN (15:38)
--- NOTE | 2022-09-15 15:45 | P.HP ---
Certification for Inpatient Patient admitted to: Inpatient With expected LOS: >2 Midnights Patient will require the following post-hospital care: None Practitioner: I am a practitioner with admitting privileges, knowledge of patient current condition, hospital course, and medical plan of care. Services: Services provided to patient in accordance with Admission requirements found in Title 42 Section 412.3 of the Code of Federal Regulations Patient History Date of Service: 09/15/22 Reason for admission: Acute posthemorrhagic anemia History of Present Illness: This is a 42-year-old male with past medical history significant for hypertension. Patient presents to the emergency room from an ENT evaluation relating to epistaxis and vagal episode. Patient was seen by ENT for possible cauterization, while in the office, patient became lethargic and diaphoretic and was transferred to the ER for further evaluation. Patient was evaluated in the ED, patient is alert and oriented x4 but very lethargic. No further bleeding noted during evaluation. In the ER, his labs were significant for hemoglobin of 7.6, potassium 2.2, calcium 5, magnesium 1.1. Electrolytes will will be replaced while in the ED, 2 units of PRBCs were ordered. Patient was also hypertensive in the ER. Patient stated he was once on antihypertensive medication, but lost his insurance after he became incarcerated. Patient will be admitted under care of Dr. Levin. Patient will be n.p.o. after midnight and sent to the OR tomorrow for cauterization. Allergies No Known Allergies Allergy (Unverified 01/07/18 15:40) - Past Medical/Surgical History -: HTN Past Surgical History: Patient denies surgical history - Social History Smoking Status: Current every day smoker Smoking therapy provided: Yes Patient receptive to therapy: No Alcohol use: Yes CD- Drugs: No Caffeine use: No Place of Residence: Home Review of Systems 10-point ROS is otherwise unremarkable General: Weakness, Malaise ENT: As per HPI Physical Examination - Vital Signs Temperature: 98.1 F Blood Pressure: 152/100 Pulse: 78 Respirations: 15 Pulse Ox (%): 100 - Physical Exam General: Alert, In no apparent distress, Oriented x3 HEENT: Atraumatic, Normocephalic, PERRLA Neck: Supple, 2+ carotid pulse no bruit Respiratory: Clear to auscultation bilaterally, Normal air movement Cardiovascular: No edema, Normal pulses Capillary refill: <2 Seconds Gastrointestinal: Normal bowel sounds Musculoskeletal: No clubbing, No swelling, No contractures Integumentary: No rashes, No breakdown Neurological: Normal speech, Normal strength at 5/5 x4 extr, Normal tone Lymphatics: No axilla or inguinal lymphadenopathy - Studies Laboratory Data (last 24 hrs) 09/15/22 13:39: PT 15.0 H, INR 1.36 09/15/22 13:39: WBC 7.00, Hgb 7.6 L, Hct 23.0 L, Plt Count 201 09/15/22 13:39: Sodium 149 H, Potassium 2.2 L*, BUN 14, Creatinine 0.53 L, Glucose 57 L, Magnesium 1.1 L, Total Bilirubin 0.1 L, AST 8 L, ALT 15 L, Alkaline Phosphatase 26 L Assessment and Plan - Plan Assessment Acute posthemorrhagic anemia Epistaxis Hypokalemia Hypomagnesia Hypertension Current everyday smoker Plan Patient is currently stable no further bleeding noted. Patient hemoglobin currently is 7.6 we will administer 2 units of PRBCs. CBC every 2 hours Repeat electrolytes, recheck per ICU protocols Continue IV fluids N.p.o. after midnight Surgery consulted, patient will go to the OR tomorrow for cauterization Continue hydralazine as needed for SBP greater than 160 DVT PPx-SCDs Full code Discharge Plan: Home Plan to discharge in: Greater than 2 days - Advance Directives Does patient have a Living Will: No Does patient have a Durable POA for Healthcare: No - Code Status/Comfort Care Code Status Assessed: Yes (Full code) Critical Care: Yes Time Spent Managing Pts Care (In Minutes): 60
[2022-09-15 17:20] LABS: Absolute Lymphocytes (CBC) 1.8 K/uL (0.7-4.9); Hematocrit 35.4 % (39.6-49.0); Lymphocytes % 15.6 % (15.3-44.8); MCV 85.6 fL (80-100); MPV 7.2 fL (7.6-11.3); RBC Red Blood Cell Count 4.14 M/uL (4.33-5.43)
[2022-09-15 17:45] LABS: Absolute Lymphocytes (CBC) 1.6 K/uL (0.7-4.9); Hematocrit 39.3 % (39.6-49.0); Lymphocytes % 15.5 % (15.3-44.8); MPV 7.1 fL (7.6-11.3); RBC Red Blood Cell Count 4.56 M/uL (4.33-5.43)
[2022-09-15 18:05] LABS: Albumin 3.8 g/dL (3.4-5.0); Bilirubin Total 0.4 mg/dL (0.2-1.0); Magnesium 2.8 mg/dL (1.6-2.4); Potassium 4.3 mEq/L (3.5-5.1); Protein, Total 7.1 g/dL (6.4-8.2)
[2022-09-15] MEDS ORDERED: AMLODIPINE 5 MG TAB ONE (19:40)
[2022-09-15 20:57] VITALS: BMI 37.0
[2022-09-15] MEDS: NA CHLORIDE 0.9% 1,000 ML IV SCH (21:02)
[2022-09-15 22:18] LABS: Absolute Lymphocytes (CBC) 2.5 K/uL (0.7-4.9); Hematocrit 34.4 % (39.6-49.0); Lymphocytes % 25.1 % (15.3-44.8); MCV 85.3 fL (80-100); MPV 7.1 fL (7.6-11.3); RBC Red Blood Cell Count 4.04 M/uL (4.33-5.43)
[2022-09-16] MEDS: NA CHLORIDE 0.9% 1,000 ML IV SCH ×2 (02:00→05:22)
--- NOTE | 2022-09-16 08:05 | P.PN ---
Date of Service: 09/16/22 Subjective: ROS: 10 point ROS as noted above, otherwise negative Physical Exam: GEN: Alert, oriented, NAD HEENT: Normal conjunctiva, sclera anicteric CV: Regular rate and rhythm, no edema Pulm: Nonlabored respirations on room air ABD: Soft, nontender, nondistended MSK: No joint tenderness Integumentary: No rashes Neuro: Normal speech, normal affect vitals reviewed Problem List: Acute posthemorrhagic anemia Epistaxis Hypokalemia Hypomagnesia Hypertension Nicotine dependence Acute posthemorrhagic anemia Epistaxis currently stable. no further bleeding Patient hemoglobin currently is 7.6 2 uPRBCs ordered 09/15 CBC every 2 hours Surgery consulted Scheduled for cauterization today 09/16 NPO Hypokalemia Hypomagnesia Hypertension Repeat electrolytes Continue IVF Continue hydralazine as needed Nicotine dependence Patient counseled on tobacco cessation. Refuses nicotine patch VTE: SCD Code: Full Dispo: Home 2+ days
[2022-09-16 09:09] LABS: Absolute Lymphocytes (CBC) 1.5 K/uL (0.7-4.9); Hematocrit 34.9 % (39.6-49.0); Lymphocytes % 20.5 % (15.3-44.8); MCV 85.6 fL (80-100); MPV 7.3 fL (7.6-11.3); RBC Red Blood Cell Count 4.08 M/uL (4.33-5.43)
[2022-09-16] MEDS ORDERED: FENTANYL CITR 100 MCG/2 ML ONE (09:36)
[2022-09-16] MEDS ORDERED: ROCURONIUM 50 MG/5 ML VIAL IV ONE (09:36)
[2022-09-16] MEDS ORDERED: MIDAZOLAM HCL 2 MG/2 ML INJ ONE (09:36)
[2022-09-16] MEDS ORDERED: LIDOCAINE 2% MPF 5 ML VIAL ONE (09:36)
[2022-09-16] MEDS ORDERED: propofoL 200 MG/20 ML VIAL IV ONE ×2 (09:36→10:38)
[2022-09-16] MEDS ORDERED: ONDANSETRON 4 MG/2 ML VIAL ONE (09:37)
[2022-09-16] MEDS ORDERED: EPINEPHRINE/PF 1 MG/ML AMP ONE (09:53)
[2022-09-16] MEDS ORDERED: LIDOCAINE 1% W/EPI 1:100,000 10 ML VIAL ONE (09:53)
[2022-09-16] MEDS ORDERED: OXYMETAZOLINE HCL 0.05% 15ML NAS ONE (09:53)
[2022-09-16] MEDS ORDERED: NA CHLORIDE 0.9% 500 ML ONE (09:53)
[2022-09-16] MEDS ORDERED: CEFAZOLIN SODIUM 2 GM/VIAL ONE (09:55)
[2022-09-16 09:58] LABS: Potassium 4.3 mEq/L (3.5-5.1)
[2022-09-16] MEDS ORDERED: SUCCINYLCHOLINE 20 MG/ML (10 ML) IV ONE (10:14)
[2022-09-16] MEDS ORDERED: NA CHLORIDE 0.9% 1,000 ML ONE (11:44)
[2022-09-16 11:56] VITALS: BP 142/82; TEMP 97; O2SAT 100
[2022-09-16] MEDS ORDERED: HYDROCODONE/APAP 7.5/325 MG TAB PO PRN (12:18)
--- NOTE | 2022-09-16 13:07 | OP ---
Surgeon: SHELLY HARO Preoperative Diagnoses: 1.Left nasal cavity posterior epistaxis. 2.Moderate/severe left inferior turbinate hypertrophy causing nasal obstruction. Postoperative Diagnoses: 1.Left nasal cavity posterior epistaxis. 2.Moderate/severe left inferior turbinate hypertrophy causing nasal obstruction. Procedures: 1.Bilateral diagnostic nasal endoscopy with cauterization of the left posterior nasal bleeding. 2.Extensive packing of the left nasal cavity. Anesthesia: General endotracheal anesthesia was administered. Afrin-soaked nasal pledgets were used for vasoconstriction and decongestion. Specimens: None. Estimated Blood Loss: Approximately 5 mL. Findings: Bilateral nasal obstruction secondary to deviated septum and an inferior turbinate hypertr ophy. Patient had oozing of blood at the left middle meatus. Complications: None. Disposition: Stable. The patient tolerated the procedure well. Indications For Procedure: Patient is a pleasant 42-year-old male who presented to my clinic with re calcitrant left posterior nasal epistaxis in which I was unable to pack or cauterize in the clinic se tting. He was transferred to the emergency room, stabilized, after he had a vasovagal episode in my office. Patient's bleeding did stop, but upon arrival to the preoperative area, he did have acute le ft nasal epistaxis and he has had recurrent episodes overnight. These were indications to bring the patient to operative suite for the above-mentioned procedure. He understood, all questions were answ ered. Risks versus benefits and complications were explained in detail and a consent form was signed and which was placed in the chart. Description Of Procedure: Patient was transferred from the preoperative holding area to the operativ e suite by Department of Anesthesia, placed on the operating table supine, sedated and intubated in n ormal fashion. Table was rotated to 180 degrees and head rest was placed. Afrin-soaked nasal pledge ts were introduced into bilateral nasal cavities. They were allowed to sit for approximately 5 to 10 minutes. Then they were removed and I inserted a 0-degree rigid nasal endoscope along the floor of the left nasal cavity and I was able to locate the bleeding but it was very tight and I knew that I w as unable to insert 2 instruments secondary to nasal obstruction. Right nasal cavity was almost comp letely obstructed secondary to deviated septum. I performed a left inferior turbinate Coblation on a setting of 7 for ablation and 3 for coagulation in order to reach the middle meatus and secondary to nasal obstruction. Once this was achieved, I was then able to outfracture further the inferior turb inate to expose the area needed for cauterization. I then cauterized with suction Bovie on a setting of 20 of coagulation. I then inserted FloSeal and Surgicel dissolvable packing into the middle meat us followed by a 10 cm Merocel pack into the left nasal cavity. The ties were secured. The cheek an d mustache dressing were placed. He received 2 g of Ancef preoperatively and will be discharged home on antibiotic ointment and oral antibiotics as well as pain medications to take p.r.n., and will fol low up in 2 days for hopefully pack removal. He tolerated the procedure well, and was transferred ba to Department of Anesthesia in stable condition. WILDER/MARSHA Voice ID: [id number] Report ID: [id number]
--- NOTE | 2022-09-16 15:07 | CON ---
Date of Consultation: 09/15/2022 Chief Complaint: Left nasal cavity bleed. History Of Present Illness: Patient is a pleasant 42-year-old male who had a significant episode of left nasal cavity bleeding approximately 1 week ago. He placed a tissue paper inside his nose to sto p the bleeding and it did stop, but he has had almost daily recurrent bleeding where he is coughing u p bright red blood clots. Patient states that the bleeding was at the back of his nose because he wa s swallowing blood and he had blood coming out of the left side of his nose. He presented to my clin ic, but I was unable to pack him or perform successful cautery secondary to his intranasal anatomy an d his inability to tolerate it despite anesthetizing the area with lidocaine and epinephrine and Afri n pledgets. He had a vasovagal episode in my office and the ambulance was called to transfer him to the emergency room, whereby he was evaluated and then admitted to the floor. It was determined at th is point that it was best to set him up for intranasal cauterization, possibly packing under sedation . No other complaints today. He denies any previous bleeding episodes, nasal sprays, but he has had significant nasal trauma in the past. No other ENT complaints today. Past Medical History: Denies. Past Surgical History: Denies. Medications: No known drugs taken at this time. Allergies: BACTRIM AND IODINE. Social History: The patient reports occasional alcohol and positive for social smoking as well as th e marijuana use. Review of Systems: Head: Denies headache. Eyes: Denies drainage or visual disturbance. Ears: Denies otorrhea or ear pain. Nose: Positive for left nasal cavity bleeding. Throat: Positive for postnasal blood, but negative for sore throat or dysphagia. Physical Examination: Vital Signs: Stable. Patient's blood pressure is slightly elevated at 153/83, pulse is 99, oxygen s ats are 99% on room air. Head: Atraumatic, normocephalic. Eyes: PERRLA/EOMI. Ears: Deferred. Nose: Small Surgicel packing seen anteriorly. Throat: Negative for posterior pharyngeal blood, which has stopped since arriving to the hospital an d patient has patent oral airway. Neck: Supple. Trachea midline. Diagnosis: Acute recurrent left nasal cavity epistaxis. Recommendations: 1.Plan is to place him n.p.o. after midnight and we will take him to the operating room in the [facility] for definitive posterior nasal cavity cauterization, possible packing. 2.Internal Medicine management appreciated. WILDER/MARSHA Voice ID: [id number] Report ID: [id number]
--- NOTE | 2022-09-16 15:09 | P.DS ---
Admission Date: 09/15/22 Discharge Date: 09/16/22 Disposition: ROUTINE DISCHARGE Reason for Admission: Acute posthemorrhagic anemia Consultations: Otolaryngology - Dr. Gray Brief History of Present Illness: 42yo M, PMH: hypertension Patient presents to the emergency room from an ENT evaluation relating to epistaxis and vagal episode. Patient was seen by ENT for possible cauterization, while in the office, patient became lethargic and diaphoretic and was transferred to the ER for further evaluation. Patient was evaluated in the ED, patient is alert and oriented x4 but very lethargic. No further bleeding noted during evaluation. In the ER, his labs were significant for hemoglobin of 7.6, potassium 2.2, calcium 5, magnesium 1.1. Electrolytes will will be replaced while in the ED, 2 units of PRBCs were ordered. Patient was also hypertensive in the ER. Patient stated he was once on antihypertensive medication, but lost his insurance after he became incarcerated. Patient will be admitted under care of Dr. Levin. Patient will be n.p.o. after midnight and sent to the OR tomorrow for cauterization. Hospital Course: Problem List: Acute posthemorrhagic anemia Epistaxis Hypokalemia Hypomagnesia Hypertension Nicotine dependence Physical Exam: GEN: Alert, oriented, NAD HEENT: Normal conjunctiva, sclera anicteric CV: Regular rate and rhythm, no edema Pulm: Nonlabored respirations on room air ABD: Soft, nontender, nondistended MSK: No joint tenderness Integumentary: No rashes Neuro: Normal speech, normal affect Vital Signs/Physical Exam: Temp Pulse Resp BP Pulse Ox 97.0 F 90 16 142/82 H 98 09/16/22 11:55 09/16/22 11:55 09/16/22 11:55 09/16/22 11:55 09/16/22 08:00 Laboratory Data at Discharge: WBC 7.20 thou/uL (4.3-10.9) 09/16/22 08:44 Hgb 11.6 g/dL (13.6-17.9) L 09/16/22 08:44 Hct 34.9 % (39.6-49.0) L 09/16/22 08:44 Plt Count 268 thou/uL (152-406) 09/16/22 08:44 PT 15.0 SECONDS (9.5-12.5) H 09/15/22 13:39 INR 1.36 09/15/22 13:39 Sodium 138 mEq/L (136-145) 09/16/22 08:44 Potassium 4.3 mEq/L (3.5-5.1) 09/16/22 08:44 BUN 14 mg/dL (7-18) 09/16/22 08:44 Creatinine 1.12 mg/dL (0.70-1.30) 09/16/22 08:44 Glucose 102 mg/dL (74-106) 09/16/22 08:44 Magnesium 2.8 mg/dL (1.6-2.4) H 09/15/22 17:37 Total Bilirubin 0.4 mg/dL (0.2-1.0) 09/15/22 17:37 AST 15 U/L (15-37) 09/15/22 17:37 ALT 31 U/L (16-61) 09/15/22 17:37 Alkaline Phosphatase 52 U/L (45-117) D 09/15/22 17:37 Home Medications: NK [No Home Meds] 09/15/22 Followup: Anna Gray DO [ACTIVE - CAN ADMIT] - (Follow up on Sunday09/18/22 to remove nasal packing) NONE,NONE [Primary Care Provider] - Time spent managing pt's care (in minutes): 45
--- NOTE | 2022-09-18 12:44 | EKG ---
Test Date: 2022-09-15 Test Time: 13:24:15 Photograph Inspector: CARLTON MEASUREMENT RESULTS: Intervals: Rate: 72 AZ: 164 QRSD: 146 QT: 466 QTc: 510 Traver: P: 51 AZ: 164 QRS: 57 T: 51 INTERPRETIVE STATEMENTS: Normal sinus rhythm Right bundle branch block Abnormal ECG No previous ECG available for comparison Electronically Signed On 09-18-22 12:37:48 CDT by Orlando Knox
== END 2022-09-16 13:44 | disposition home or self-care (01) | DRG 812 ==
LOC: ER 13:10 → ERHOLD 15:25 → 2ND 19:17 → 4TH 09-16 04:00
PROVIDERS: ADMIT Hospitalist; ATTEND Hospitalist
PROC: 30233N1 Transfusion of Nonautologous Red Blood Cells into Peripheral Vein, Percutaneous Approach (ICD-10-PCS; principal; 2022-09-15)
PROC: 093K8ZZ Control Bleeding in Nasal Mucosa and Soft Tissue, Via Natural or Artificial Opening Endoscopic (ICD-10-PCS; 2022-09-16)
DX: D62 Acute posthemorrhagic anemia (principal); R04.0 Epistaxis; E87.6 Hypokalemia; E83.42 Hypomagnesemia; I10 Essential (primary) hypertension; J34.2 Deviated nasal septum; J34.3 Hypertrophy of nasal turbinates; I45.10 Unspecified right bundle-branch block; F17.210 Nicotine dependence, cigarettes, uncomplicated; Z71.6 Tobacco abuse counseling; Z91.148 Patient's other noncompliance with medication regimen for other reason; Z88.3 Allergy status to other anti-infective agents; Z91.041 Radiographic dye allergy status
CPT/HCPCS: 36415; 71045; 80048; 80053; 80076; 82550; 82947; 83735; 83880; 84132; 84484; 85025; 85610; 86850; 86900; 86901; 86920; 93005; 99285; J0171; J0360; J2001; J2250; J2405; J2704; J3010; J3475; J3480; J7030; J7050; P9016

== ENCOUNTER → 2023-05-29 | Emergency (ER) | payer SELFPAY ==
[~2023-05-29] MED LIST: NA CHLORIDE 0.9% 1,000 ML ONE; lisinopriL 10 MG TAB ONE
--- OUTSIDE RECORDS SUMMARY | 2023-05-29 16:13 | XMS REPORT | Continuity of Care Document ---
Author Name Unknown Address [address] [facility] [place] [address] [facility] [address] [facility] [address] [place] [address] Care Team Providers Care Hide And Skin Classer Name Role Phone PCP, PATIENT DOES NOT HAVE A Primary Care Physic stevo Unavailable Neno SORENSEN Attending Clinician Unavailable Neno Parra Attending Clinician [facility] Attending Clinician Unavailable [facility] Justin MD Attending Clinician [phone] Payers Payer Name Policy Type Policy Number Effective Date Expirati on Date Source [facility] [id number] 2022 00:00:00 2022 00:00:00 [facility] [id number] 2018 00:00:00 Problems Condition Name Condition Details Condition Category Status Onset Date Resolution Date Last Treatment Date Treating Clinician Comments Source No known active problems No known active problems Disease [facility] Allergies, Adverse Reactions, Alerts Allergy Name Allergy Type Status Severity Reaction(s) Onset Date Inactive Date Treating Clinician Comments Source IODINE DRUG INGREDI Active Swelling 2021-05 00:00: 00 [facility] Iodine Propensi ty to adverse reaction s Active Swelling 2021-05 00:00: 00 [facility] SULFA (SULFONA MIDE ANTIBIOT ICS) Drug Class Active Swelling 2017-05 00:00: 00 [facility] Sulfa (Sulfona mide Antibiot ics) Propensi ty to adverse reaction s Active Swelling 2017-05 00:00: 00 [facility] Social History Social Habit Start Date Stop Date Quantity Comments Source Exposure to SARS-CoV-2 (event) 2022-09-03 00:00:00 2022-09-13 16:53:00 Not sure [facility] Sex Assigned At 1980 00:00:00 1980 00:00:00 [facility] Smoking Status Start Date Stop Date Source Tobacco smoking consumption unknown [facility] Medications Ordered Medication Name Filled Medication Name Start Date Stop Date Current Medication? Ordering Clinician Indication Dosage Frequency Signature (SIG) Comments Components Source oxymetazoli ne (OXYMETAZOL INE HCL) 0.05 % nasal spray 2 Dana 09-13 21:00: 00 09-13 21:01 :00 No 2{spray } 2 Dana, Nasal, ONCE, 1 dose, On Sun09/13/22 at 1600, YEHUDA [facility] nystatin 100,000 unit/mL suspension 2017-05 00:00: 00 Yes [id number] Take 5 mL by mouth 4 (four) times daily. [facility] amLODIPine 2.5 mg tablet 2017-05 00:00: 00 Yes 5mg Take 2 tablets by mouth at bedtime. [facility] nystatin 100,000 unit/mL suspension 2017-05 00:00: 00 Yes [id number] Take 5 mL by mouth 4 (four) times daily. [facility] amLODIPine 2.5 mg tablet 2017-05 00:00: 00 Yes 5mg Take 2 tablets by mouth at bedtime. [facility] Vital Signs Vital Name Observation Time Observation Value Comments S curtis Systolic blood pressure 2022-09-13 20:30:00 145 mm[Hg] [facility] Diastolic blood pressure 2022-09-13 20:30:00 94 mm[Hg] [facility] Heart rate 2022-09-13 20:30:00 79 /min [facility] Body temperature 2022-09-13 20:30:00 36.94 Cookie [facility] Respiratory rate 2022-09-13 20:30:00 18 /min [facility] Body height 2022-09-13 20:30:00 180.3 cm [facility] Body weight 2022-09-13 20:30:00 117.935 kg [facility] BMI 2022-09-13 20:30:00 36.26 kg/m2 [facility] Oxygen saturation in Arterial blood by Pulse oximetry 2022-09-13 20:30:00 97 /min [facility] Systolic blood pressure 2022-02-28 23:37:00 172 mm[Hg] [facility] Diastolic blood pressure 2022-02-28 23:37:00 125 mm[Hg] [facility] Heart rate 2022-02-28 23:37:00 88 /min [facility] Respiratory rate 2022-02-28 23:37:00 18 /min [facility] Oxygen saturation in Arterial blood by Pulse oximetry 2022-02-28 23:37:00 100 /min [facility] Body temperature 2022-02-28 22:15:00 36.5 Cookie [facility] Body height 2022-02-28 22:15:00 180.3 cm [facility] Body weight 2022-02-28 22:15:00 107.956 kg [facility] BMI 2022-02-28 22:15:00 33.19 kg/m2 [facility] Encounters Start Date/Time End Date/Time Encounter Type Admission Type Attending Clinicians Care Facility Care Department Encounter ID Source 2022-09-13 15:32:00 2022-09-13 17:06:00 Emergency X Neno SORENSEN [facility] ERT [id number] [facility] 2022-09-13 15:32:00 2022-09-13 17:06:[address] [facility] [id number] [facility] 2022-02-28 17:17:00 2022-02-28 18:38:00 Emergency X [facility] ERT [id number] [facility] 2022-02-28 17:17:00 2022-02-28 18:38:00 Emergency [facility] Justin [facility] [id number] [facility]
[2023-05-29 17:05] LABS: Absolute Lymphocytes (CBC) 1.3 K/uL (0.7-4.9); Hematocrit 43.1 % (39.6-49.0); Lymphocytes % 18.6 % (15.3-44.8); MCV 84.3 fL (80-100); MPV 7.5 fL (7.6-11.3); Platelets 300 thou/uL (152-406); RBC Red Blood Cell Count 5.11 M/uL (4.33-5.43)
--- NOTE | 2023-05-29 17:07 | RAD REPORT ---
EXAM DESCRIPTION: CT - Head Brain Wo Cont - 05/29/2023 4:55 pm CLINICAL HISTORY: WEAKNESS COMPARISON: No comparisons TECHNIQUE: All CT scans are performed using dose optimization technique as appropriate and may inclu de automated exposure control or mA/KV adjustment according to patient size. FINDINGS: No intracranial hemorrhage, hydrocephalus or extra-axial fluid collection.No areas of brai n edema or evidence of midline shift. 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 The calvarium is intact. IMPRESSION: No acute intracranial abnormality.
[2023-05-29 17:08] LABS: Protime INR 1.06
--- NOTE | 2023-05-29 17:14 | RAD REPORT ---
EXAM DESCRIPTION: RAD - Chest Single View - 05/29/2023 5:06 pm CLINICAL HISTORY: PAIN COMPARISON: Chest Single View dated 09/15/2022 FINDINGS: Lines: None. Lungs: No evidence of edema or pneumonia. Pleural: No significant pleural effusions or pneumothorax. Cardiac: Similar size and configuration. Mediastinum: Within normal limits. Bones: No acute fractures. Other: None IMPRESSION: No acute cardiopulmonary disease.
[2023-05-29 17:15] LABS: Albumin 3.8 g/dL (3.4-5.0); Bilirubin Direct 0.1 mg/dL (0-0.2); Bilirubin Indirect, Calculated 0.4 mg/dL (0.2-0.8); Bilirubin Total 0.5 mg/dL (0.2-1.0); Magnesium 1.7 mg/dL (1.6-2.4); Potassium 3.7 mEq/L (3.5-5.1); Protein, Total 7.8 g/dL (6.4-8.2); Troponin High Sensitivity 9.1 pg/mL (<58.9)
--- NOTE | 2023-05-29 20:03 | ER ---
Nurse's Notes [facility] Name: Saturnino Mackey Age: 43 yrs Sex: Male : 1980 Arrival Date: 05/29/2023 Time: 16:11 Bed 10 Private MD: Diagnosis: Syncope Near;Essential (primary) hypertension Presentation: 05/29 16:18 Chief complaint: Patient states: No appetite today. Started to get weak, fatigue, near ll1 syncope, nausea within the past 30 minutes. Coronavirus screen: Client denies travel out of the [place] in the last 14 days. At this time, the client does not indicate any symptoms associated with coronavirus-19. Ebola Screen: Patient denies travel to an Ebola-affected area in the 21 days before illness onset. No acute neurological deficit is noted. Initial Sepsis Screen: Does the patient meet any 2 criteria? No. Patient's initial sepsis screen is negative. Does the patient have a suspected source of infection? No. Patient's initial sepsis screen is negative. Risk Assessment: Do you want to hurt yourself or someone else?. Onset of symptoms was May 29, 2023. 16:18 Method Of Arrival: Wheelchair ll1 16:18 Acuity: AMARIS 2 ll1 Triage Assessment: 16:23 General: Appears distressed, uncomfortable, Behavior is cooperative, appropriate for ll1 age, listless. General: Reports fatigue for. Pain: Denies pain. Neuro: Reports a syncopal episode weakness. Respiratory:. GI: Reports nausea. Stroke Activation: Symptom onset < 3 hours Physician: Stroke Attending; Name: ; Notified At: ; Arrived At: Physician: Chief Stroke Resident; Name: ; Notified At: ; Arrived At: Physician: Stroke Resident; Name: ; Notified At: ; Arrived At: Physician: ED Attending; Name: ; Notified At: ; Arrived At: Physician: ED Resident; Name: ; Notified At: ; Arrived At: Historical: - Allergies: 16:20 Bactrim; ll1 - PMHx: 16:14 Hypertension; iw 16:20 Hypercholesterolemia; ll1 - PSHx: 16:23 nasal septum repair; ll1 - Immunization history:: Adult Immunizations up to date. - Social history:: Smoking status: Patient reports the use of cigarette tobacco products, smokes one pack cigarettes per day. Screenin:29 [facility] ED Fall Risk Assessment (Adult) History of falling in the last 3 months, kc6 including since admission No falls in past 3 months (0 pts) Confusion or Disorientation No (0 pts) Intoxicated or Sedated No (0 pts) Impaired Gait No (0 pts) Mobility Assist Device Used No (0 pt) Altered Elimination No (0 pt) Score/Fall Risk Level 0 - 2 = Low Risk. Abuse screen: Denies threats or abuse. Denies injuries from another. Nutritional screening: No deficits noted. Tuberculosis screening: No symptoms or risk factors identified. Assessment: 17:32 General: Appears in no apparent distress. comfortable, well groomed, well developed, kc6 Behavior is calm, cooperative, appropriate for age, Reports feeling ill for fatigue for. Neuro: Level of Consciousness is awake, alert, obeys commands, Oriented to person, place, time, situation, Appropriate for age Reports dizziness, a syncopal episode weakness. Cardiovascular: Capillary refill < 3 seconds. Respiratory: Reports shortness of breath Airway is patent Trachea midline Respiratory effort is even, unlabored, Respiratory pattern is regular, symmetrical. GI: Reports nausea, Patient currently denies diarrhea, vomiting. : No signs and/or symptoms were reported regarding the genitourinary system. EENT: No signs and/or symptoms were reported regarding the EENT system. Derm: No signs and/or symptoms reported regarding the dermatologic system. Skin is intact, is healthy with good turgor, Skin is pink, warm \T\ dry. Musculoskeletal: No signs and/or symptoms reported regarding the musculoskeletal system. Circulation, motion, and sensation intact. Capillary refill < 3 seconds, Range of motion: intact in all extremities. 18:26 Reassessment: Patient appears in no apparent distress at this time. No changes from kc6 previously documented assessment. Patient and/or family updated on plan of care and expected duration. Pain level reassessed. Patient is alert, oriented x 3, equal unlabored respirations, skin warm/dry/pink. 19:21 Reassessment: Patient appears in no apparent distress at this time. Patient and/or tm6 family updated on plan of care and expected duration. Pain level reassessed. Patient is alert, oriented x 3, equal unlabored respirations, skin warm/dry/pink. 20:24 Reassessment: Patient appears in no apparent distress at this time. Patient and/or tm6 family updated on plan of care and expected duration. Pain level reassessed. Patient is alert, oriented x 3, equal unlabored respirations, skin warm/dry/pink. Vital Signs: 16:18 BP 162 / 111; Pulse 86; Resp 18; Temp 97; Pulse Ox 99% ; Weight 117.93 kg; Height 5 ft. ll1 11 in. ; Pain 0/10; 17:15 BP 149 / 101 RA Supine (man/lg); Pulse 77; kc6 17:15 BP 153 / 98 RA Sitting (auto/lg); Pulse 82; kc6 19:21 BP 154 / 102; Pulse 82; Resp 15; Pulse Ox 100% on R/A; Pain 0/10; tm6 20:24 BP 149 / 89; Pulse 88; Resp 16; Pulse Ox 100% on R/A; Pain 0/10; tm6 16:18 Body Mass Index 36.26 (117.93 kg, 180.34 cm) ll1 16:18 Pain Scale: Adult ll1 19:21 Pain Scale: Adult tm6 20:24 Pain Scale: Adult tm6 ED Course: 16:13 Patient arrived in ED. mg5 16:14 Arm band placed on. iw 16:15 Nessa Quintero FNP-C is PHCP. kb 16:15 Maulik Cates DO is Attending Physician. kb 16:19 Triage completed. ll1 16:54 Loida Marques, RN is Primary Nurse. kc6 16:56 Patient placed in an exam room, on a stretcher. ll1 16:57 CT Head Brain wo Cont In Process Unspecified. EDMS 17:08 Chest Single View XRAY In Process Unspecified. EDMS 17:29 Inserted saline lock: 20 gauge in left antecubital area, using aseptic technique. Blood kc6 collected. Patient maintains SpO2 saturation greater than 95% on room air. 17:34 Patient has correct armband on for positive identification. Bed in low position. Call kc6 light in reach. Side rails up X 1. Adult w/ patient. Client placed on continuous cardiac and pulse oximetry monitoring. NIBP monitoring applied. 19:21 Troponin High Sensitivity Sent. tm6 20:25 Provided Education on: lifestyle changes to improve blood pressure. tm6 20:25 No provider procedures requiring assistance completed. IV discontinued, intact, tm6 bleeding controlled, No redness/swelling at site. Pressure dressing applied. Administered Medications: 17:15 Drug: Lisinopril PO 10 mg PO once Route: PO; kc6 18:27 Follow up: Response: No adverse reaction; Blood pressure is lowered kc6 18:48 Drug: NS 0.9% IV 1000 ml IV at 1000 ml once Route: IV; Rate: 1000 ml; Site: left kc6 antecubital; 20:27 Follow up: Response: No adverse reaction; IV Status: Completed infusion; IV Intake: tm6 1000ml Medication: 20:26 VIS not applicable for this client. tm6 Intake: 20:27 IV: 1000ml; Total: 1000ml. tm6 Outcome: 20:03 Discharge ordered by . kb 20:25 Discharged to home ambulatory, with family, tm6 20:25 Condition: stable 20:25 Discharge instructions given to patient, family, Instructed on discharge instructions, follow up and referral plans. medication usage, Demonstrated understanding of instructions, follow-up care, medications, 20:26 Patient left the ED. tm6 Signatures: Dispatcher [employer] EDMS Nessa Quintero, HYDRO EXCAVATION OPERATOR-C HYDRO EXCAVATION OPERATOR-Ckb Crista Michael, RN RN Etelvina Berry RN RN ll1 Loida Marques RN RN Alida Banuelos 5 Estrada Pompa RN RN tm6 Corrections: (The following items were deleted from the chart) 16:20 16:14 Allergies: No Known Allergies; iw 1 16:20 16:20 Social history: Smoking status: Patient denies any tobacco usage or history of. ll1 ll1 16:23 16:20 PSHx: None; ll1 ll1
--- NOTE | 2023-05-29 20:03 | EDPHYS ---
Physician Documentation [facility] Name: Saturnino Mackey Age: 43 yrs Sex: Male : 1980 Arrival Date: 05/29/2023 Time: 16:11 Bed 10 Private MD: ED Physician Maulik Cates HPI: 05/29 21:20 This 43 yrs old Black Male presents to ER via Wheelchair with complaints of Weakness. kb 21:20 Patient is a 43-year-old male with a history of hypertension who presents for weakness, kb fatigue, near syncope and nausea that started just prior to arrival. States he has not had an appetite today. Denies abdominal pain, vomiting, diarrhea. Denies fever. States he is supposed to take lisinopril 10 mg p.o. daily but he has been off of it for quite some time.. Historical: - Allergies: 16:20 Bactrim; ll1 - PMHx: 16:14 Hypertension; iw 16:20 Hypercholesterolemia; ll1 - PSHx: 16:23 nasal septum repair; ll1 - Immunization history:: Adult Immunizations up to date. - Social history:: Smoking status: Patient reports the use of cigarette tobacco products, smokes one pack cigarettes per day. ROS: 21:17 Constitutional: Negative for fever, chills, and weight loss, kb 21:17 Abdomen/GI: Positive for nausea, Negative for abdominal pain, vomiting, diarrhea, 21:17 Neuro: Positive for near syncope, weakness, 21:17 All other systems are negative, Exam: 17:43 Constitutional: This is a well developed, well nourished patient who is awake, alert, kb and in no acute distress. Head/Face: Normocephalic, atraumatic. ENT: Moist Mucous membranes Cardiovascular: Regular rate Respiratory: Respirations even and unlabored. No increased work of breathing. Talking in full sentences Abdomen/GI: Soft, non-tender. No distention Skin: Warm, dry with normal turgor. Normal color. MS/ Extremity: Pulses equal, no cyanosis. Neurovascular intact. Full, normal range of motion. Neuro: Awake and alert, GCS 15, oriented to person, place, time, and situation. Moves all extremities. Normal gait. 17:43 ECG was reviewed by the Attending Physician. Vital Signs: 16:18 BP 162 / 111; Pulse 86; Resp 18; Temp 97; Pulse Ox 99% ; Weight 117.93 kg; Height 5 ft. ll1 11 in. ; Pain 0/10; 17:15 BP 149 / 101 RA Supine (man/lg); Pulse 77; kc6 17:15 BP 153 / 98 RA Sitting (auto/lg); Pulse 82; kc6 19:21 BP 154 / 102; Pulse 82; Resp 15; Pulse Ox 100% on R/A; Pain 0/10; tm6 20:24 BP 149 / 89; Pulse 88; Resp 16; Pulse Ox 100% on R/A; Pain 0/10; tm6 16:18 Body Mass Index 36.26 (117.93 kg, 180.34 cm) ll1 16:18 Pain Scale: Adult ll1 19:21 Pain Scale: Adult tm6 20:24 Pain Scale: Adult tm6 MDM: 16:15 Patient medically screened. kb 21:19 Data reviewed: vital signs, nurses notes. Care significantly affected by the following chronic conditions: Hypertension. Counseling: I had a detailed discussion with the patient and/or guardian regarding the historical points, exam findings, and any diagnostic results supporting the discharge/admit diagnosis, lab results, radiology results, the need for outpatient follow up, a family practitioner, to return to the emergency department if symptoms worsen or persist or if there are any questions or concerns that arise at home. 05/29 16:21 Order name: Basic Metabolic Panel; Complete Time: 17:30 kb 05/29 16:21 Order name: CBC with Diff; Complete Time: 17:10 kb 05/29 16:21 Order name: Hepatic Function; Complete Time: 17:30 kb 05/29 16:21 Order name: Magnesium; Complete Time: 17:30 kb 05/29 16:21 Order name: Protime (+inr); Complete Time: 17:10 kb 05/29 16:21 Order name: Ptt, Activated; Complete Time: 17:10 kb 05/29 16:21 Order name: Troponin High Sensitivity; Complete Time: 17:30 kb 05/29 16:39 Order name: Glucose, Ancillary Testing; Complete Time: 16:39 EDMS 05/29 18:50 Order name: Troponin High Sensitivity; Complete Time: 20:02 kb 05/29 16:21 Order name: CT Head Brain wo Cont; Complete Time: 17:10 kb 05/29 16:21 Order name: Chest Single View XRAY; Complete Time: 17:30 kb 05/29 16:21 Order name: EKG; Complete Time: 16:22 kb 05/29 16:21 Order name: Cardiac monitoring; Complete Time: 17:15 kb 05/29 16:21 Order name: EKG - Nurse/Tech; Complete Time: 17:15 kb 05/29 16:21 Order name: IV Saline Lock; Complete Time: 16:55 kb 05/29 16:21 Order name: Labs collected and sent; Complete Time: 16:55 kb 05/29 16:21 Order name: NPO; Complete Time: 16:55 kb 05/29 16:21 Order name: O2 Per Protocol; Complete Time: 16:55 kb 05/29 16:21 Order name: O2 Sat Monitoring; Complete Time: 16:55 kb 05/29 16:21 Order name: Orthostatics; Complete Time: 17:15 kb 05/29 16:25 Order name: Blood Glucose Level; Complete Time: 16:27 kb EC:43 Rate is 78 beats/min. Rhythm is regular. QRS [place] is Normal. MA interval is normal at kb 162 msec. QRS interval is normal at 152 msec. QT interval is prolonged at 506 msec. Administered Medications: 17:15 Drug: Lisinopril PO 10 mg PO once Route: PO; kc6 18:27 Follow up: Response: No adverse reaction; Blood pressure is lowered kc6 18:48 Drug: NS 0.9% IV 1000 ml IV at 1000 ml once Route: IV; Rate: 1000 ml; Site: left kc6 antecubital; 20:27 Follow up: Response: No adverse reaction; IV Status: Completed infusion; IV Intake: tm6 1000ml Disposition: 19:17 I was immediately available on-site in the Emergency Department for consultation in the [facility] care of the patient. Disposition Summary: 05/29/23 20:03 Discharge Ordered Notes: Location: Home Condition: Stable kb Diagnosis - Syncope Near kb - Essential (primary) hypertension kb Followup: kb - With: Emergency Department - When: As needed - Reason: Worsening of condition Followup: kb - With: Private Physician - When: 2 - 3 days - Reason: Recheck today's complaints, Continuance of care, Re-evaluation by your physician Discharge Instructions: - Discharge Summary Sheet kb - Near-Syncope, [id number] kb - Hypertension, Adult, [id number] kb Forms: - Medication Reconciliation Form kb - Thank You Letter kb - Antibiotic Education kb - Prescription Opioid Use kb - Patient Portal Instructions kb - Leadership Thank You Letter kb Prescriptions: - Lisinopril 10 mg Oral Tablet - take 1 tablet ORAL route once daily; 20 tablet; Refills: 0, Product Selection kb Permitted Signatures: Dispatcher [employer] EDMS Nessa Quintero, ASSISTANT FILM EDITOR-C ASSISTANT FILM EDITOR-Crista Montiel, RN RN iw Etelvina Centeno RN RN ll1 Maulik Cates DO DO ms3 Loida Marques RN RN kc6 Estrada Pompa RN tm6 Corrections: (The following items were deleted from the chart) 16:20 16:14 Allergies: No Known Allergies; [facility] 16:20 16:20 Social history: Smoking status: Patient denies any tobacco usage or history of. ll1 ll1 16:23 16:20 PSHx: None; 1 ll1
[2023-05-29 22:51] VITALS: TEMP 97
[2023-05-29 23:02] VITALS: BP 149/89; O2SAT 100
--- NOTE | 2023-05-30 17:35 | EKG ---
Test Date: 2023-05-29 Test Time: 17:06:38 Pattern Filer: SCAR MEASUREMENT RESULTS: Intervals: Rate: 78 TX: 162 QRSD: 152 QT: 444 QTc: 506 [place]: P: 50 TX: 162 QRS: 53 T: 49 INTERPRETIVE STATEMENTS: Normal sinus rhythm Right bundle branch block Abnormal ECG Compared to ECG 09/15/2022 13:24:15 No significant changes Electronically Signed On 05-30-23 17:33:50 ASSISTANT FOOD SERVICE MANAGER by Matti Krishnamurthy
== END ==
LOC: ER 16:11
DX: R55 Syncope and collapse (principal); I10 Essential (primary) hypertension; E78.00 Pure hypercholesterolemia, unspecified; F17.210 Nicotine dependence, cigarettes, uncomplicated; Z88.2 Allergy status to sulfonamides
CPT/HCPCS: 36415; 70450; 71045; 80048; 80076; 82947; 83735; 84484; 85025; 85610; 85730; 93005; 96360; 96361; 99285; J7030